=== PATIENT | female | born 1985 ===

== ENCOUNTER 2021-05-02 14:34 | Emergency (ER) | payer SELFPAY ==
[~2021-05-02] VITALS: Ht 157.5 cm; Wt 77.1 kg
[2021-05-02 14:34] VITALS: BP 120/110
== END 2021-05-02 19:37 | disposition left against medical advice (07) ==
LOC: ER 14:34
DX: S80.212A Abrasion, left knee, initial encounter (principal); M25.571 Pain in right ankle and joints of right foot; Z53.21 Procedure and treatment not carried out due to patient leaving prior to being seen by health care provider; W01.198A Fall on same level from slipping, tripping and stumbling with subsequent striking against other object, initial encounter; Y93.89 Activity, other specified; Y92.89 Other specified places as the place of occurrence of the external cause; Y99.8 Other external cause status